=== PATIENT | male | born 1995 | race Two or more races ===

== ENCOUNTER 2024-01-07 23:52 | Emergency (ER) | payer OTHER ==
[~2024-01-07] VITALS: Ht 180.3 cm; Wt 108.0 kg
[2024-01-08] MEDS ORDERED: ORPHENADRINE CITRATE 30 MG/ML AMPUL IM STA (02:03)
[2024-01-08] MEDS ORDERED: KETOROLAC TROMETHAMINE 60 MG VIAL IM STA (02:03)
[2024-01-08] MEDS ORDERED: ORPHENADRINE CITRATE 30 MG/ML AMPUL ONE (02:09)
[2024-01-08] MEDS ORDERED: KETOROLAC TROMETHAMINE 60 MG VIAL IM ONE (02:09)
== END 2024-01-08 02:18 | disposition home or self-care (01) ==
LOC: ER 23:53
DX: G24.3 Spasmodic torticollis (principal)